=== PATIENT | female | born 1995 | race African-American/Black ===

== ENCOUNTER 2021-02-05 13:27 | Emergency (ER) | payer MEDICAID ==
[~2021-02-05] VITALS: Ht 165.1 cm; Wt 95.3 kg
[2021-02-05] MEDS ORDERED: TYLENOL325 M1 PO (15:24)
[2021-02-05] MEDS ORDERED: NAPROXEN250 MG PO (15:24)
[2021-02-05] MEDS ORDERED: CYCLOBENZAPRINE10 MG PO (15:24)
== END 2021-02-05 15:55 | disposition home or self-care (01) ==
LOC: ED 13:27
DX: R07.89 Other chest pain (principal); M79.18 Myalgia, other site

== ENCOUNTER → 2022-06-05 | Outpatient (CLI) | payer OTHER ==
[~2022-06-05] MED LIST: CYCLOBENZAPRINE10 MG PO; NAPROXEN250 MG PO; TYLENOL325 M1 PO
[2022-06-05 11:34] LABS: BASO % 0.7 % (0.0-1.0); BILIRUBIN Negative (Negative); BLOOD Negative (Negative); CLARITY Clear (Clear); COLOR Yellow (Yellow); EOS % 0.9 % (1.0-4.0); GLUCOSE Negative (Negative); HEMATOCRIT 39.9 % (37.0-47.0); KETONE 2+ (Negative); LEUKO ESTERASE Negative (Negative); LYMPH # 1.8 10*3/uL (1.3-4.4); LYMPH % 40.9 % (27.0-41.0); MEAN CELL VOLUME 92.1 fl (81.0-99.0); MEAN CORPUSCULAR HGB 31.4 pg (27.0-31.0); MEAN CORPUSCULAR HGB CONC 34.1 g/dl (33.0-37.0); MEAN PLATELET VOLUME 9.8 fl (9.6-12.3); MONO # 0.3 10*3/uL (0.1-1.0); MONO % 6.8 % (3.0-9.0); NEUT # 2.2 10*3/uL (2.3-7.9); NEUT % 50.7 % (47.0-73.0); NITRITE Negative (Negative); PH 5.5 (4.5-8.0); PLATELET COUNT AUTOMATED 227 10*3/uL (130-400); RED BLOOD COUNT 4.33 10*6/uL (4.10-5.10); RED CELL DISTRI WIDTH 12.8 % (0-14.5); RETICULOCYTE % 1.06 % (0.50-2.50); SPECIFIC GRAVITY >= 1.030 (1.001-1.030); WHITE BLOOD COUNT 4.4 10*3/uL (4.8-10.8)
[2022-06-05 11:45] LABS: BACTERIA 2+; MUCOUS 2+; RBC 0-2 rbc/hpf (0-2); WBC 0-2 wbc/hpf (0-5)
[2022-06-05 11:51] LABS: ALKALINE PHOSPHATASE 52 U/L (45-117); BUN 15 mg/dl (7-24); CHLORIDE 108 mmol/L (98-107); CHOLESTEROL 220 mg/dL (<200); CREATININE 0.79 mg/dL (0.55-1.02); GAMMA GLUTAMYL TRANSPEPTIDASE 14 U/L (5-55); IRON 101 ug/dL (50-170); LDL CHOLESTEROL 148 mg/dL (9-159); POTASSIUM 3.7 mmol/L (3.5-5.1); SGOT/AST 13 IU/L (3-35); SGPT/ALT 19 U/L (12-78); SODIUM 141 mmol/L (136-145); T3 UPTAKE 37 % (31-39); THYROXINE (T4) TOTAL 11.8 ug/dl (4.8-13.9); TOTAL PROTEIN 8.2 gm/dL (6.4-8.2); TRIGLYCERIDES 50 mg/dl (<150); URIC ACID 3.2 mg/dL (2.6-6.0)
[2022-06-05 12:30] LABS: FERRITIN 25.8 ng/mL (10.0-291.0); VITAMIN D, 25-HYDROXY 20.9 ng/mL (30-100)
[2022-06-06 04:06] LABS: RHEUMATOID FACTOR <10.0 IU/mL (<14.0)
[2022-06-06 12:07] LABS: ANTI-DSDNA ANTIBODIES <1 IU/mL (0-9)
== END | disposition home or self-care (01) ==
LOC: LAB 10:30
PROVIDERS: ATTEND Family Medicine
DX: E78.5 Hyperlipidemia, unspecified (principal); E55.9 Vitamin D deficiency, unspecified; R79.89 Other specified abnormal findings of blood chemistry; R53.83 Other fatigue; R74.8 Abnormal levels of other serum enzymes

== ENCOUNTER 2022-06-12 19:54 | Emergency (ER) | payer OTHER ==
[~2022-06-12] VITALS: Ht 165.1 cm; Wt 82.6 kg
[2022-06-12 21:04] LABS: BASO % 0.6 % (0.0-1.0); EOS % 0.4 % (1.0-4.0); LYMPH # 0.8 10*3/uL (1.3-4.4); LYMPH % 16.2 % (27.0-41.0); MEAN CELL VOLUME 92.2 fl (81.0-99.0); MEAN CORPUSCULAR HGB 31.2 pg (27.0-31.0); MEAN CORPUSCULAR HGB CONC 33.8 g/dl (33.0-37.0); MEAN PLATELET VOLUME 9.7 fl (9.6-12.3); MONO # 0.7 10*3/uL (0.1-1.0); MONO % 14.9 % (3.0-9.0); NEUT # 3.3 10*3/uL (2.3-7.9); NEUT % 67.7 % (47.0-73.0); PLATELET COUNT AUTOMATED 173 10*3/uL (130-400); RED BLOOD COUNT 4.23 10*6/uL (4.10-5.10); RED CELL DISTRI WIDTH 12.9 % (0-14.5); WHITE BLOOD COUNT 4.8 10*3/uL (4.8-10.8)
[2022-06-12 21:20] LABS: ALKALINE PHOSPHATASE 55 U/L (45-117); BUN 7 mg/dl (7-24); CHLORIDE 110 mmol/L (98-107); CREATININE 0.72 mg/dL (0.55-1.02); POTASSIUM 3.6 mmol/L (3.5-5.1); SGOT/AST 12 IU/L (3-35); SGPT/ALT 20 U/L (12-78); SODIUM 140 mmol/L (136-145); TOTAL PROTEIN 7.4 gm/dL (6.4-8.2)
== END 2022-06-12 22:22 | disposition home or self-care (01) ==
LOC: ED 19:54
PROVIDERS: Internal Medicine
DX: U07.1 COVID-19 (principal); J06.9 Acute upper respiratory infection, unspecified

== ENCOUNTER → 2022-06-19 | Outpatient (CLI) | payer OTHER | END | disposition home or self-care (01) | LOC: US 07:10 | PROVIDERS: ATTEND Family Medicine | DX: M79.605 Pain in left leg (principal) ==

== ENCOUNTER → 2022-06-30 | Outpatient (CLI) | payer OTHER | END | disposition home or self-care (01) | LOC: MRI 02:25 | PROVIDERS: ATTEND Family Medicine | DX: R51.9 Headache, unspecified (principal) ==

== ENCOUNTER → 2022-07-08 | Outpatient (CLI) | payer OTHER | LOC: CARD 11:32 | PROVIDERS: ATTEND Internal Medicine Cardiovascular Disease | DX: R06.09 Other forms of dyspnea (principal) ==

== ENCOUNTER → 2022-10-22 | Outpatient (CLI) | payer MEDICAID ==
[2022-10-22 10:49] LABS: BILIRUBIN Negative (Negative); BLOOD Negative (Negative); CLARITY Cloudy (Clear); COLOR Yellow (Yellow); GLUCOSE Negative (Negative); KETONE Negative (Negative); LEUKO ESTERASE Negative (Negative); NITRITE Negative (Negative); SPECIFIC GRAVITY 1.025 (1.001-1.030); UROBILINOGEN 0.2 E.U./dl (0.0-1.0)
[2022-10-22 10:49] LABS: BASO % 0.7 % (0.0-1.0); EOS # 0.1 10*3/uL (0.0-0.4); EOS % 0.9 % (1.0-4.0); HEMATOCRIT 40.5 % (37.0-47.0); LYMPH # 2.2 10*3/uL (1.3-4.4); LYMPH % 37.7 % (27.0-41.0); MEAN CELL VOLUME 93.8 fl (81.0-99.0); MEAN CORPUSCULAR HGB 31.3 pg (27.0-31.0); MEAN CORPUSCULAR HGB CONC 33.3 g/dl (33.0-37.0); MONO # 0.4 10*3/uL (0.1-1.0); MONO % 7.5 % (3.0-9.0); NEUT # 3.1 10*3/uL (2.3-7.9); PLATELET COUNT AUTOMATED 205 10*3/uL (130-400); RED BLOOD COUNT 4.32 10*6/uL (4.10-5.10); RETICULOCYTE % 0.87 % (0.50-2.50); WHITE BLOOD COUNT 5.8 10*3/uL (4.8-10.8)
[2022-10-22 11:10] LABS: BACTERIA 1+
[2022-10-22 11:17] LABS: ALKALINE PHOSPHATASE 59 U/L (46-116); BUN 12 mg/dl (9-23); CHLORIDE 108 mmol/L (98-107); CHOLESTEROL 160 mg/dL (<200); GAMMA GLUTAMYL TRANSPEPTIDASE 9 U/L (0-73); LDL CHOLESTEROL 104 mg/dL (9-159); POTASSIUM 4.1 mmol/L (3.4-5.1); SGPT/ALT 12 U/L (10-49); T3 UPTAKE 26.9 % (22.4-36.7); THYROID STIM HORMONE (HS) 1.241 uIU/ml (0.550-4.780); THYROXINE (T4) TOTAL 7.4 ug/dl (4.5-10.9); TOTAL PROTEIN 7.1 gm/dL (6.0-8.0); TRIGLYCERIDES 31 mg/dl (<150); URIC ACID 3.1 mg/dL (3.1-7.8)
[2022-10-22 11:24] LABS: VITAMIN D, 25-HYDROXY 25.5 ng/mL (30-100)
== END | disposition home or self-care (01) ==
LOC: LAB 10:02
PROVIDERS: ATTEND Family Medicine
DX: E78.5 Hyperlipidemia, unspecified (principal); R79.89 Other specified abnormal findings of blood chemistry; R53.83 Other fatigue; E55.9 Vitamin D deficiency, unspecified; R74.8 Abnormal levels of other serum enzymes

== ENCOUNTER → 2022-11-18 | Outpatient (CLI) | payer MEDICAID | END | disposition home or self-care (01) | LOC: MRI 00:58 | PROVIDERS: ATTEND Family Medicine | DX: R51.9 Headache, unspecified (principal) ==